=== PATIENT | female | born 2000 | race Caucasian/White ===

== ENCOUNTER 2024-08-14 15:43 | Emergency (ER) | payer BC ==
[~2024-08-14] VITALS: Ht 160 cm; Wt 68.2 kg
[2024-08-14 15:57] VITALS: TEMP 98.3
[2024-08-14] MEDS ORDERED: VALTREX1 GM PO (18:39)
[2024-08-14] MEDS ORDERED: PREDNISONE20 MG PO (18:39)
[2024-08-14] MEDS ORDERED: NORCO 325 MG-51 TAB PO (18:39)
[2024-08-14 18:52] VITALS: BP 111/78; PULSE 89
== END 2024-08-14 18:52 | disposition home or self-care (01) ==
LOC: COL.ER 15:43
DX: B02.9 Zoster without complications (principal)